=== PATIENT | male | born 1990 | race Caucasian/White ===

== ENCOUNTER → 2021-04-19 | Emergency (ER) | payer BC, MEDICAID ==
[~2021-04-19] MED LIST: CEPH-322 PO; NAPR500T31 PO
== END | disposition left against medical advice (07) ==
LOC: ER 09:49
DX: R21 Rash and other nonspecific skin eruption (principal); Z53.21 Procedure and treatment not carried out due to patient leaving prior to being seen by health care provider

== ENCOUNTER 2021-04-20 14:00 | Emergency (ER) | payer MEDICAID ==
[~2021-04-20] VITALS: Ht 190.5 cm; Wt 95.3 kg
[2021-04-20 15:52] VITALS: BP 126/83
[2021-04-20] MEDS ORDERED: CEPH-322 PO (15:52)
[2021-04-20] MEDS ORDERED: NAPR500T31 PO (15:52)
== END 2021-04-20 16:13 | disposition home or self-care (01) ==
LOC: ER 14:00
DX: L01.00 Impetigo, unspecified (principal); F12.10 Cannabis abuse, uncomplicated; F41.9 Anxiety disorder, unspecified; Z88.1 Allergy status to other antibiotic agents

== ENCOUNTER 2021-05-10 05:23 | Inpatient (IN) | payer MEDICAID ==
[~2021-05-10] VITALS: Ht 190.5 cm; Wt 93.2 kg
[2021-05-10 07:48] LABS: Basophils # (auto) 0.1 10 ^3/uL (0-0.2); Basophils % (auto) 0.5 % (0.0-2.0); Eosinophils # (auto) 0 10 ^3/uL (0-0.8); Eosinophils % (auto) 0.1 % (0.0-7.0); Hematocrit 46.6 % (41.0-53.0); Hemoglobin 16.1 g/dL (13.5-17.5); Lymphocytes # (auto) 2.1 10 ^3/uL (0.4-5.4); Lymphocytes % (auto) 17.6 % (10.0-50.0); Mean Corpuscular Hgb Conc. 34.6 g/dL (32.0-36.0); Mean Corpuscular Volume 98.3 fL (80.0-100.0); Monocytes # (auto) 1.2 10 ^3/uL (0-1.3); Monocytes % (auto) 9.8 % (0.0-12.0); Neutrophils # (auto) 8.8 10 ^3/uL (1.6-8.6); Nucleated Red Blood Cells % 0.1 %; Red Blood Cells 4.75 10^6/uL (4.5-5.90); White Blood Cell 12.2 10^3/uL (4.4-10.8)
[2021-05-10 08:12] LABS: Potassium 3.2 mmol/L (3.5-5.1)
[2021-05-10 08:21] LABS: Albumin 3.7 g/dL (3.4-5.0); BUN/Creatinine Ratio 8.5; Bilirubin, Total 0.8 mg/dL (0.2-1.0); Calcium 8.9 mg/dL (8.5-10.1); Total Protein 7.8 g/dL (6.4-8.2)
[2021-05-10] MEDS ORDERED: HEPARIN SODIUM (PORCINE) 5000 UNITS/ML 1ML VIAL IV ONE (09:00)
[2021-05-10] MEDS ORDERED: ACETAMINOPHEN 325 MG TAB PO PRN (17:30)
[2021-05-10 18:30] LABS: Basophils # (auto) 0.1 10 ^3/uL (0-0.2); Basophils % (auto) 0.6 % (0.0-2.0); Eosinophils # (auto) 0 10 ^3/uL (0-0.8); Eosinophils % (auto) 0.2 % (0.0-7.0); Hematocrit 43.6 % (41.0-53.0); Hemoglobin 15.2 g/dL (13.5-17.5); Lymphocytes # (auto) 1.4 10 ^3/uL (0.4-5.4); Lymphocytes % (auto) 11.6 % (10.0-50.0); Mean Corpuscular Hemoglobin 33.9 pg (28.0-32.0); Mean Corpuscular Hgb Conc. 34.9 g/dL (32.0-36.0); Mean Corpuscular Volume 97.3 fL (80.0-100.0); Monocytes # (auto) 1.1 10 ^3/uL (0-1.3); Monocytes % (auto) 9.2 % (0.0-12.0); Neutrophils # (auto) 9.7 10 ^3/uL (1.6-8.6); Neutrophils % (auto) 78.4 % (37.0-80.0); Nucleated Red Blood Cells % 0.1 %; Red Blood Cells 4.48 10^6/uL (4.5-5.90); Red Cell Distribution Width 15.1 % (11.8-14.3); White Blood Cell 12.3 10^3/uL (4.4-10.8)
[2021-05-10 18:49] LABS: INR 1.1 (0.9-1.15); Partial Thromboplastin Time 29.6 sec (23.6-33.0)
[2021-05-10] MEDS: HEPARIN DRIP/D5W 100UNITS/ML 250 ML IV SCH (19:24)
[2021-05-10] MEDS: HYDROcodone-ACET 5/325MG TAB PO PRN ×2 (19:35→23:38)
[2021-05-10 21:15] VITALS: BP 136/83
[2021-05-10 22:00] VITALS: BP 136/85
[2021-05-10 22:51] LABS: INR 1.12 (0.9-1.15); Partial Thromboplastin Time 32.5 sec (23.6-33.0)
[2021-05-11 01:56] LABS: Basophils # (auto) 0.1 10 ^3/uL (0-0.2); Eosinophils # (auto) 0.1 10 ^3/uL (0-0.8); Mean Corpuscular Volume 97.2 fL (80.0-100.0); Neutrophils # (auto) 7.6 10 ^3/uL (1.6-8.6); Nucleated Red Blood Cells % 0.1 %
[2021-05-11 01:58] LABS: Basophils % (auto) 1.1 % (0.0-2.0); Eosinophils % (auto) 0.8 % (0.0-7.0); Hematocrit 41.1 % (41.0-53.0); Hemoglobin 14.2 g/dL (13.5-17.5); Lymphocytes % (auto) 18.2 % (10.0-50.0); Mean Corpuscular Hemoglobin 33.5 pg (28.0-32.0); Mean Corpuscular Hgb Conc. 34.5 g/dL (32.0-36.0); Monocytes # (auto) 1.3 10 ^3/uL (0-1.3); Monocytes % (auto) 11.7 % (0.0-12.0); Neutrophils % (auto) 68.2 % (37.0-80.0); Red Blood Cells 4.23 10^6/uL (4.5-5.90); Red Cell Distribution Width 15.3 % (11.8-14.3); White Blood Cell 11.1 10^3/uL (4.4-10.8)
[2021-05-11 02:38] LABS: INR 1.13 (0.9-1.15); Partial Thromboplastin Time 37.3 sec (23.6-33.0)
[2021-05-11] MEDS: HEPARIN DRIP/D5W 100UNITS/ML 250 ML IV SCH (02:45)
[2021-05-11] MEDS: HYDROcodone-ACET 5/325MG TAB PO PRN ×4 (03:49→22:44)
[2021-05-11 05:00] VITALS: BP 129/82
[2021-05-11 06:06] LABS: Basophils # (auto) 0 10 ^3/uL (0-0.2); Basophils % (auto) 0.4 % (0.0-2.0); Eosinophils # (auto) 0.1 10 ^3/uL (0-0.8); Lymphocytes # (auto) 1.6 10 ^3/uL (0.4-5.4); Monocytes # (auto) 1.1 10 ^3/uL (0-1.3)
[2021-05-11 06:11] LABS: Eosinophils % (auto) 0.9 % (0.0-7.0); Hematocrit 38.1 % (41.0-53.0); Hemoglobin 13.5 g/dL (13.5-17.5); Lymphocytes % (auto) 15.1 % (10.0-50.0); Mean Corpuscular Hemoglobin 34.4 pg (28.0-32.0); Mean Corpuscular Hgb Conc. 35.5 g/dL (32.0-36.0); Mean Corpuscular Volume 96.9 fL (80.0-100.0); Monocytes % (auto) 10.5 % (0.0-12.0); Neutrophils # (auto) 7.6 10 ^3/uL (1.6-8.6); Neutrophils % (auto) 73.1 % (37.0-80.0); Nucleated Red Blood Cells % 0.2 %; Red Blood Cells 3.94 10^6/uL (4.5-5.90); Red Cell Distribution Width 15.4 % (11.8-14.3); White Blood Cell 10.3 10^3/uL (4.4-10.8)
[2021-05-11 06:43] LABS: Potassium 3.5 mmol/L (3.5-5.1)
[2021-05-11 06:48] LABS: BUN/Creatinine Ratio 8.3; Calcium 8.2 mg/dL (8.5-10.1)
[2021-05-11] MEDS ORDERED: HEPARIN DRIP/D5W 100UNITS/ML 250 ML IV SCH (07:00)
[2021-05-11 08:00] VITALS: BP 124/88
[2021-05-11 09:00] VITALS: BP 124/88
[2021-05-11 09:21] LABS: INR 1.11 (0.9-1.15); Partial Thromboplastin Time 41.1 sec (23.6-33.0)
[2021-05-11] MEDS ORDERED: fentaNYL CITRATE 100 MCG/2 ML VL ONE (11:53)
[2021-05-11] MEDS ORDERED: ANGIOMAX 250 MG VIAL IV ONE (11:53)
[2021-05-11] MEDS ORDERED: SODIUM CHL 0.9% 0 ML ONE (11:54)
[2021-05-11] MEDS ORDERED: MIDAZOLAM HCL 2MG/2ML 2ml VIAL (1mg/ml) ONE ×2 (11:54→12:32)
[2021-05-11] MEDS ORDERED: LIDOCAINE 2%HCL (LOCAL ANESTH.) INJ 20ML MDV ONE (11:55)
[2021-05-11] MEDS ORDERED: HYDROmorphone HCL 2 MG/ML VL ONE (11:58)
[2021-05-11] MEDS ORDERED: HEPARIN SODIUM (PORCINE) 5000 UNITS/ML 1ML VIAL ONE (13:07)
[2021-05-11 17:00] VITALS: BP 135/85
[2021-05-11] MEDS ORDERED: ENOXAPARIN SOD 80 MG/0.8ML SYRINGE SC ONE (20:00)
[2021-05-11] MEDS: SODIUM CHLOR 0.9% PF (SALINE LOCK) 10ML VIAL/SYR IV SCH (21:30)
[2021-05-12] MEDS: HYDROcodone-ACET 5/325MG TAB PO PRN ×2 (04:25→08:58)
[2021-05-12] MEDS: SODIUM CHLOR 0.9% PF (SALINE LOCK) 10ML VIAL/SYR IV SCH ×2 (05:41→13:55)
[2021-05-12] MEDS: APIXABAN 5 MG TAB PO SCH ×2 (06:06→19:03)
[2021-05-12 09:00] VITALS: BP 103/67
[2021-05-12] MEDS ORDERED: APIX5TAB PO (12:00)
[2021-05-12 13:00] VITALS: BP 127/79
[2021-05-12] MEDS ORDERED: HYDR1TAB97 PO (15:57)
[2021-05-12 17:00] VITALS: BP 122/78
[2021-05-12 17:04] VITALS: BP 122/78
[2021-05-19] MEDS ORDERED: APIXABAN 5 MG TAB PO SCH (07:00)
== END 2021-05-12 19:20 | disposition home health service (06) | DRG 180 ==
LOC: ER 05:23 → TELE 17:17 → TELE-CENTR 20:40
PROVIDERS: ADMIT Internal Medicine; ATTEND Internal Medicine
PROC: 06CN3ZZ Extirpation of Matter from Left Femoral Vein, Percutaneous Approach (ICD-10-PCS; principal; 2021-05-11)
PROC: B51CYZZ Fluoroscopy of Left Lower Extremity Veins using Other Contrast (ICD-10-PCS; 2021-05-11)
DX: I82.412 Acute embolism and thrombosis of left femoral vein (principal); I82.422 Acute embolism and thrombosis of left iliac vein; I82.432 Acute embolism and thrombosis of left popliteal vein; F41.9 Anxiety disorder, unspecified; Z20.822 Contact with and (suspected) exposure to COVID-19; W18.39XA Other fall on same level, initial encounter; S42.022A Displaced fracture of shaft of left clavicle, initial encounter for closed fracture; Z88.1 Allergy status to other antibiotic agents; Z88.0 Allergy status to penicillin; Y93.89 Activity, other specified; Y92.89 Other specified places as the place of occurrence of the external cause; Y99.8 Other external cause status
CPT/HCPCS: 36415; 73030; 80048; 80053; 80307; 83605; 85025; 85610; 85730; 87040; 87426; 93005; 93306; 93971; 96365; 96375; 99152; 99153; C1769; G0378; J2250

== ENCOUNTER 2021-05-28 18:50 | Emergency (ER) | payer MEDICAID ==
[~2021-05-28] VITALS: Ht 190.5 cm; Wt 99.8 kg
[~2021-05-28 18:50] MED LIST changes: +APIX5TAB PO; -CEPH-322 PO; +HYDR1TAB97 PO; -NAPR500T31 PO
[2021-05-28 18:55] VITALS: BP 131/80
== END 2021-05-28 23:10 | disposition left against medical advice (07) ==
LOC: ER 18:50
DX: M79.662 Pain in left lower leg (principal); Z53.21 Procedure and treatment not carried out due to patient leaving prior to being seen by health care provider

== ENCOUNTER 2023-06-08 04:45 | Inpatient (IN) | payer MEDICAID ==
[~2023-06-08] VITALS: Ht 190.5 cm; Wt 95.0 kg
[2023-06-08 08:50] LABS: Basophils # (auto) 0.1 10 ^3/uL (0-0.2); Basophils % (auto) 0.8 % (0.0-2.0); Eosinophils # (auto) 0 10 ^3/uL (0-0.8); Eosinophils % (auto) 0.4 % (0.0-7.0); Hematocrit 48.7 % (41.0-53.0); Hemoglobin 16.8 g/dL (13.5-17.5); Lymphocytes # (auto) 2.4 10 ^3/uL (0.4-5.4); Lymphocytes % (auto) 25.2 % (10.0-50.0); Mean Corpuscular Hemoglobin 33.7 pg (28.0-32.0); Mean Corpuscular Hgb Conc. 34.6 g/dL (32.0-36.0); Mean Corpuscular Volume 97.5 fL (80.0-100.0); Monocytes # (auto) 0.9 10 ^3/uL (0-1.3); Monocytes % (auto) 9.1 % (0.0-12.0); Neutrophils % (auto) 64.5 % (37.0-80.0); Nucleated Red Blood Cells % 0.2 %; Red Blood Cells 4.99 10^6/uL (4.5-5.90); Red Cell Distribution Width 14.3 % (11.8-14.3); White Blood Cell 9.4 10^3/uL (4.4-10.8)
[2023-06-08 09:16] LABS: Alanine Aminotransferase 12 U/L (7-40); Albumin 4.5 g/dL (3.2-4.8); Alkaline Phosphatase 85 U/L (46-116); Anion Gap 10 (5-15); Aspartate Aminotransferase 18 U/L (13-40); Bilirubin, Total 1.2 mg/dL (0.2-1.0); Calcium 9.7 mg/dL (8.5-10.1); Carbon Dioxide 24 mmol/L (20-30); Chloride 105 mmol/L (98-107); Glucose 98 mg/dL (74-106); INR 1.18 (0.9-1.15); Potassium 3.6 mmol/L (3.5-5.1); Prothrombin Time 12.3 sec (9.3-11.8); Sodium 139 mmol/L (136-145); Total Protein 7.7 g/dL (5.7-8.2)
[2023-06-08 09:17] LABS: BUN/Creatinine Ratio 5.4 (10.0-20.0); Blood Urea Nitrogen < 5 mg/dL (9-23)
[2023-06-08] MEDS ORDERED: ONDANSETRON HCL 4 MG/2 ML VIAL IV PRN (09:30)
[2023-06-08] MEDS ORDERED: DOCUSATE SOD 100 MG CAP PO PRN (09:30)
[2023-06-08] MEDS ORDERED: ACETAMINOPHEN 325 MG TAB PO PRN (09:30)
[2023-06-08] MEDS ORDERED: APIXABAN 5 MG TAB PO SCH (10:00)
[2023-06-08 10:50] VITALS: PULSE 107; RESP 18; O2SAT 96
[2023-06-08 10:50] LABS: Basophils # (auto) 0.1 10 ^3/uL (0-0.2); Basophils % (auto) 0.9 % (0.0-2.0); Eosinophils # (auto) 0 10 ^3/uL (0-0.8); Eosinophils % (auto) 0.5 % (0.0-7.0); Hematocrit 47.5 % (41.0-53.0); Hemoglobin 16.4 g/dL (13.5-17.5); Lymphocytes # (auto) 2.3 10 ^3/uL (0.4-5.4); Lymphocytes % (auto) 23.6 % (10.0-50.0); Mean Corpuscular Hemoglobin 33.8 pg (28.0-32.0); Mean Corpuscular Hgb Conc. 34.6 g/dL (32.0-36.0); Mean Corpuscular Volume 97.9 fL (80.0-100.0); Neutrophils # (auto) 6.3 10 ^3/uL (1.6-8.6); Nucleated Red Blood Cells % 0.3 %; Red Blood Cells 4.86 10^6/uL (4.5-5.90); Red Cell Distribution Width 14.6 % (11.8-14.3); White Blood Cell 9.7 10^3/uL (4.4-10.8)
[2023-06-08] MEDS: PANTOPRAZOLE 40 MG/10 ML VIAL INJ IV SCH (10:56)
[2023-06-08 11:08] LABS: INR 1.19 (0.9-1.15); Partial Thromboplastin Time 34.7 SEC (24.5-34.5); Prothrombin Time 12.4 sec (9.3-11.8)
[2023-06-08] MEDS: HEPARIN SODIUM (PORCINE) 5000 UNITS/ML 1ML VIAL IV ONE (11:09)
[2023-06-08] MEDS: HEPARIN DRIP/D5W 100UNITS/ML 250 ML IV SCH (11:10)
[2023-06-08] MEDS: HYDROmorphone HCL 2 MG/ML VL/or syr IV PRN (12:01)
[2023-06-08] MEDS: SODIUM CHLOR 0.9% PF (SALINE LOCK) 10ML VIAL/SYR IV SCH (13:49)
[2023-06-08 17:36] LABS: INR 1.15 (0.9-1.15); Partial Thromboplastin Time 69.3 SEC (24.5-34.5)
[2023-06-08 19:30] VITALS: PULSE 74; RESP 24; O2SAT 94
[2023-06-08 22:19] LABS: Amphetamine Screen, Urine Pos (NEGATIVE); Barbiturate Scree,Urine Neg (NEGATIVE); Benzodiazephine Screen, Urine Neg (NEGATIVE); Cocaine Screen, Urine Neg (NEGATIVE)
[2023-06-08 22:20] LABS: Cannabinoid Screen, Urine Neg (NEGATIVE); Opiate Scree,Urine Neg (NEGATIVE); Phencyclidine Screen, Urine Neg (NEGATIVE)
[2023-06-08 23:01] VITALS: PULSE 72; RESP 20; O2SAT 98
[2023-06-08 23:24] LABS: INR 1.13 (0.9-1.15); Partial Thromboplastin Time 52.1 SEC (24.5-34.5); Prothrombin Time 11.8 sec (9.3-11.8)
[2023-06-08] MEDS ORDERED: MORPHINE SULFATE INJ 2 MG/ml SYRG IV PRN (23:45)
[2023-06-09] VITALS (11 sets, daily range): BP systolic 100–127; BP diastolic 61–89; PULSE 55–85; RESP 12–20; TEMP 97.6–98; O2SAT 96–99
[2023-06-09 06:02] LABS: INR 1.15 (0.9-1.15); Partial Thromboplastin Time 61.9 SEC (24.5-34.5)
[2023-06-09] MEDS: IOHEXOL 350 MG/ML 100ML IJ ONE (09:23)
[2023-06-09] MEDS: HEPARIN IN NS 1000Units/500mL 1,500 ML ONE (09:23)
[2023-06-09] MEDS: LIDOCAINE 2%HCL (LOCAL ANESTH.) INJ 10ml MDV ONE (09:23)
[2023-06-09] MEDS: HEPARIN SODIUM (PORCINE) 5000 UNITS/ML 1ML VIAL ONE (09:27)
[2023-06-09] MEDS: MIDAZOLAM HCL 2MG/2ML 2ml VIAL (1mg/ml) ONE (09:28)
[2023-06-09] MEDS: fentaNYL CITRATE 100 MCG/2 ML VL ONE (09:28)
[2023-06-09] MEDS: IODIXANOL 320MG/ML 100ML BTL IV ONE (10:16)
[2023-06-09] MEDS: HYDROmorphone HCL 2 MG/ML VL/or syr ONE (10:29)
[2023-06-09] MEDS: HYDROcodone-ACET 10/325MG TAB PO PRN (17:06)
[2023-06-10 05:00] VITALS: BP 105/71; PULSE 50; RESP 18; TEMP 97.5; O2SAT 98
[2023-06-10 06:23] LABS: Basophils # (auto) 0 10 ^3/uL (0-0.2); Basophils % (auto) 0.5 % (0.0-2.0); Eosinophils # (auto) 0.2 10 ^3/uL (0-0.8); Eosinophils % (auto) 1.8 % (0.0-7.0); Hematocrit 44.8 % (41.0-53.0); Hemoglobin 15.1 g/dL (13.5-17.5); Lymphocytes # (auto) 2.1 10 ^3/uL (0.4-5.4); Lymphocytes % (auto) 24.4 % (10.0-50.0); Mean Corpuscular Hemoglobin 33.3 pg (28.0-32.0); Mean Corpuscular Hgb Conc. 33.7 g/dL (32.0-36.0); Mean Corpuscular Volume 98.9 fL (80.0-100.0); Monocytes # (auto) 0.8 10 ^3/uL (0-1.3); Neutrophils # (auto) 5.5 10 ^3/uL (1.6-8.6); Neutrophils % (auto) 64.3 % (37.0-80.0); Red Blood Cells 4.53 10^6/uL (4.5-5.90); Red Cell Distribution Width 14.5 % (11.8-14.3); White Blood Cell 8.6 10^3/uL (4.4-10.8)
[2023-06-10 06:36] LABS: Chloride 105 mmol/L (98-107); Potassium 4.1 mmol/L (3.5-5.1)
[2023-06-10 06:37] LABS: Anion Gap 4 (5-15); Calcium 8.8 mg/dL (8.7-10.4); Carbon Dioxide 30 mmol/L (20-30); Sodium 139 mmol/L (136-145)
[2023-06-10 06:40] LABS: INR 1.1 (0.9-1.15); Partial Thromboplastin Time 47.3 SEC (24.5-34.5); Prothrombin Time 11.5 sec (9.3-11.8)
[2023-06-10 06:43] LABS: BUN/Creatinine Ratio 7.3 (10.0-20.0); Blood Urea Nitrogen 7 mg/dL (9-23); Glucose 83 mg/dL (74-106)
[2023-06-10 08:00] VITALS: BP 99/50; PULSE 52; PULSE 55; PULSE 85; RESP 16; RESP 18; TEMP 97.8; O2SAT 98
[2023-06-10 09:00] VITALS: BP 99/50; PULSE 52; RESP 16; TEMP 97.8; O2SAT 97
[2023-06-10] MEDS ORDERED: APIX5TAB PO (10:06)
[2023-06-10 13:00] VITALS: BP 96/64; PULSE 51; RESP 16; TEMP 97.6; O2SAT 100
[2023-06-10 13:41] VITALS: BP 99/50; PULSE 63; RESP 16; TEMP 97.8; O2SAT 97
[2023-06-10 17:00] VITALS: BP 114/76; PULSE 53; RESP 16; TEMP 97.7; O2SAT 98
[2023-06-15] MEDS ORDERED: APIXABAN 5 MG TAB PO SCH (10:00)
== END 2023-06-10 19:25 | disposition home or self-care (01) | DRG 197 ==
LOC: ER 04:45 → TELE 09:22 → TELE-CENTR 22:03
PROVIDERS: ADMIT Internal Medicine; ATTEND Internal Medicine
PROC: B51CZZZ Fluoroscopy of Left Lower Extremity Veins (ICD-10-PCS; principal; 2023-06-09)
DX: I82.412 Acute embolism and thrombosis of left femoral vein (principal); I82.432 Acute embolism and thrombosis of left popliteal vein; S43.005A Unspecified dislocation of left shoulder joint, initial encounter; F15.10 Other stimulant abuse, uncomplicated; F41.9 Anxiety disorder, unspecified; Z88.0 Allergy status to penicillin; Z86.718 Personal history of other venous thrombosis and embolism
CPT/HCPCS: 36415; 73020; 76937; 80048; 80053; 80307; 85025; 85610; 85730; 86850; 86900; 86901; 87081; 93971; 96365; 96375; 99152; 99291; C1894; C9113; G0378; J2001; J2250; Q9967